=== PATIENT | female | born 1990 ===

== ENCOUNTER 2018-04-23 15:29 | Emergency (ER) | payer MEDICAID ==
[~2018-04-23] VITALS: Ht 149.9 cm; Wt 57.0 kg
[2018-04-23] MEDS ORDERED: IBUPROFEN 600MG TABLET PO ONE (21:00)
[2018-04-23 21:07] VITALS: BP 115/74
== END 2018-04-23 21:09 | disposition home or self-care (01) ==
LOC: ER 15:29
DX: G47.00 Insomnia, unspecified (principal); F41.9 Anxiety disorder, unspecified; H92.03 Otalgia, bilateral
CPT/HCPCS: 81025; 99283